=== PATIENT | female | born 1995 | race Hispanic/Latino ===

== ENCOUNTER 2022-05-31 12:41 | Inpatient (IN) | payer MEDICAID, SELFPAY ==
[2022-05-31] MEDS ORDERED: Diphenoxylate HCl/Atropine Tablet PO PRN (12:54)
[2022-05-31] MEDS ORDERED: Butorphanol Tartrate 1 MG/ML VIAL SLOW IVP PRN (12:54)
[2022-05-31] MEDS ORDERED: Ibuprofen 800 MG TAB PO PRN (12:54)
[2022-05-31] MEDS ORDERED: Promethazine HCl 25 MG/ML VIAL IM PRN ×3 (12:54→22:28)
[2022-05-31] MEDS ORDERED: Methylergonovine 0.2 MG/ML VIAL IM PRN (12:54)
[2022-05-31] MEDS ORDERED: Ondansetron PF 4 MG/2 ML Vial IVP PRN ×3 (12:54→22:28)
[2022-05-31] MEDS ORDERED: Lidocaine 1% (PF) 30 ML VIAL SC PRN (12:54)
[2022-05-31] MEDS ORDERED: Carboprost 250 MCG/ML AMP IM PRN (12:54)
[2022-05-31] MEDS ORDERED: Misoprostol 200 MCG TAB PR PRN (12:54)
[2022-05-31] MEDS ORDERED: HYDROcodone/Acetaminophen 5/325 mg Tablet PO PRN ×3 (12:54→22:28)
[2022-05-31] MEDS ORDERED: hydrALAZINE 20 MG/ML VIAL SLOW IVP PRN ×2 (12:54→22:28)
[2022-05-31] MEDS ORDERED: Acetaminophen 500 MG TAB PO PRN (12:54)
[2022-05-31] MEDS ORDERED: Lactated Ringer's 1,000 ML IV SCH (13:00)
[2022-05-31] MEDS ORDERED: NS w/ Oxytocin 30 units 500 ML IV SCH ×2 (13:00)
[2022-05-31 13:51] LABS: Hemoglobin 12.7 g/dL (12.0-15.5); Mean Corpuscular HGB CONC 34.5 g/dL (32.0-36.0); Mean Corpuscular Hemoglobin 28.3 pg (27.0-33.0); Mean Corpuscular Volume 82.1 fl (81.6-98.3); Mean Platelet Volume 11.6 fl (7.4-10.4); Platelet Count 323 10x3/uL (150-450); RBC Distribution Width 13.2 % (11.5-14.5); Red Blood Cell (RBC) Count 4.48 10x6/uL (3.90-5.03); White Blood Cell (WBC) Count 8.2 10x3/uL (3.5-10.5)
[2022-05-31 14:14] LABS: HBSAg Index 0.16 S/CO (0-0.99); Hep B Surf Ag Non-Reactive S/CO (NonReactive); Syphilis Antibody Nonreactive (Nonreactive); Syphilis Antibody Index 0.04 S/CO (<1.00 Non-Reactive)
[2022-05-31 14:29] VITALS: BMI 36.1
[2022-05-31] MEDS ORDERED: Fentanyl 2 mcg/Bup 0.1% Cadd 100 ML ONE (14:43)
[2022-05-31] MEDS ORDERED: Lactated Ringer's 500 ML IV PRN (15:03)
[2022-05-31] MEDS ORDERED: Naloxone HCl 0.4 mg/ml Vial IVP PRN ×2 (15:03)
[2022-05-31] MEDS ORDERED: Acetaminophen 325 MG TAB PO PRN (15:03)
[2022-05-31] MEDS ORDERED: diphenhydrAMINE 50 MG/ML VIAL IVP PRN (15:03)
[2022-05-31] MEDS ORDERED: Moisturizing Cream (Eucerin) 113 GM JAR TOP PRN (15:03)
[2022-05-31] MEDS ORDERED: ePHEDrine Sulfate 50 MG/10 ML VIAL SLOW IVP PRN (15:03)
[2022-05-31] MEDS ORDERED: Fentanyl 2 mcg/Bupivacaine 0.1% Cassette 100 ML EPIDURAL SCH (15:15)
[2022-05-31] MEDS ORDERED: Communication Order-Pharmacy FS SCH (15:15)
[2022-05-31 15:40] LABS: SARS-CoV-2 NAA Rapid Test Not Detected (NotDetected)
[2022-05-31] MEDS ORDERED: Bupivacaine HCl 0.5%/Epinephrine 1:200,000/PF 30 ml Vial ONE (19:31)
[2022-05-31] MEDS ORDERED: diphenhydrAMINE 25 MG CAP PO PRN (22:28)
[2022-05-31] MEDS ORDERED: Bisacodyl 10 MG SUPP PR PRN (22:28)
[2022-05-31] MEDS ORDERED: Lanolin Ointment 7 GM TUBE TOP PRN (22:28)
[2022-05-31] MEDS ORDERED: Benzocaine-Menthol 82.5 ML CAN TOP PRN (22:28)
[2022-05-31] MEDS ORDERED: Boostrix 0.5 ML (Tdap) VIAL (>/=7 yrs of age) IM ONE (22:28)
[2022-05-31] MEDS ORDERED: Milk Of Magnesia 30 ML UDCUP PO PRN (22:28)
[2022-05-31] MEDS ORDERED: Docusate 100 MG CAP PO SCH (22:45)
[2022-05-31] MEDS ORDERED: Ibuprofen 800 MG TAB PO SCH (22:45)
[2022-06-01] MEDS: Ibuprofen 800 MG TAB PO SCH ×3 (05:21→21:31)
[2022-06-01] MEDS: Prenatal Vitamin 1 TAB PO SCH (09:03)
[2022-06-01] MEDS: Ferrous Sulfate 325 MG TAB PO SCH ×2 (09:04→15:19)
[2022-06-01] MEDS: Docusate 100 MG CAP PO SCH ×2 (09:04→21:31)
[2022-06-02] MEDS: Ibuprofen 800 MG TAB PO SCH ×2 (05:06→12:00)
[2022-06-02 08:01] VITALS: BP 112/59; TEMP 97.6
[2022-06-02] MEDS: Prenatal Vitamin 1 TAB PO SCH (12:00)
[2022-06-02] MEDS: Ferrous Sulfate 325 MG TAB PO SCH (12:01)
[2022-06-02] MEDS: Docusate 100 MG CAP PO SCH (12:01)
== END 2022-06-02 16:15 | disposition home or self-care (01) | DRG 807 ==
LOC: CSHLD 12:41 → CSHPP 22:15
PROVIDERS: ADMIT Family Medicine; ATTEND Family Medicine
PROC: 10E0XZZ Delivery of Products of Conception, External Approach (ICD-10-PCS; principal; 2022-05-31)
PROC: 10907ZC Drainage of Amniotic Fluid, Therapeutic from Products of Conception, Via Natural or Artificial Opening (ICD-10-PCS; 2022-05-31)
PROC: 0UQG7ZZ Repair Vagina, Via Natural or Artificial Opening (ICD-10-PCS; 2022-05-31)
DX: O36.8130 Decreased fetal movements, third trimester, not applicable or unspecified (principal); Z37.0 Single live birth; Z3A.38 38 weeks gestation of pregnancy; Z20.822 Contact with and (suspected) exposure to COVID-19; O71.4 Obstetric high vaginal laceration alone; O69.81X0 Labor and delivery complicated by cord around neck, without compression, not applicable or unspecified
CPT/HCPCS: 36415; 51702; 85027; 86780; 86850; 86900; 86901; 87340; U0002